=== PATIENT | male | born 1940 | race Caucasian/White ===

== ENCOUNTER 2019-05-03 15:14 | Observation (INO) | payer MEDICARE, BC ==
[2019-05-03] MEDS ORDERED: Ondansetron 4 MG/2 ML SDV IVPUSH ONE (16:45)
[2019-05-03] MEDS ORDERED: Sodium Chloride 0.9% 10 ML Syringe FLUSH PRN (16:45)
[2019-05-03] MEDS ORDERED: HYDROmorphone 0.5 MG/0.5 ML Syringe IVPUSH ONE (16:46)
--- NOTE | 2019-05-03 16:51 | EDM.PDOC ---
<Bri Chavarria - Last Filed: 05/03/19 18:45> ED HPI GENERAL MEDICAL PROBLEM - General Chief Complaint: Abdominal Pain Stated Complaint: PAIN Time Seen by Provider: 05/03/19 16:47 Source of Information: Reports: Patient History Limitations: Reports: No Limitations - History of Present Illness INITIAL COMMENTS - FREE TEXT/NARRATIVE: pt has had upper abdomanal pain starting this am and it has gotten progressively worse. S. He has not vomited. He had a bm yesterday. He does tend to be on the constipated side. Onset: Today, Sudden Duration: Hour(s): Location: Reports: Abdomen Quality: Reports: Sharp, Stabbing Severity: Moderate Associated Symptoms: Reports: Nausea/Vomiting, Weakness Upper Abdomen Pain Score (Numeric/FACES): 10 - Related Data Allergies Allergy/AdvReac Type Severity Reaction Status Date / Time codeine Allergy Swelling Verified 05/03/19 16:35 Home Meds: Home Meds Losartan [Cozaar] 50 mg PO DAILY 05/03/19 [History] Tamsulosin [Tamsulosin 24 Hr] 0.4 mg PO DAILY 05/03/19 [History] Past Medical History Cardiovascular History: Reports: Hypertension Genitourinary History: Reports: BPH Musculoskeletal History: Reports: Arthritis Oncologic (Cancer) History: Reports: Bladder - Past Surgical History GI Surgical History: Reports: Appendectomy Male Surgical History: Reports: Other (See Below) Other Male Surgeries/Procedures: tumors removed from bladder Musculoskeletal Surgical History: Reports: Hip Replacement Social & Family History - Tobacco Use Smoking Status *Q: Never Smoker - Caffeine Use Caffeine Use: Reports: Coffee - Alcohol Use Days Per Week of Alcohol Use: 7 Number of Drinks Per Day: 1 Total Drinks Per Week: 7 - Recreational Drug Use Recreational Drug Use: No ED ROS GENERAL - Review of Systems Review Of Systems: See Below HEENT: Reports: No Symptoms Respiratory: Reports: No Symptoms Cardiovascular: Reports: No Symptoms Endocrine: Reports: No Symptoms GI/Abdominal: Reports: Abdominal Pain, Decreased Appetite, Nausea, Other (pt has not eaten all day.) : Reports: No Symptoms Musculoskeletal: Reports: No Symptoms ED EXAM, GI/ABD - Physical Exam Exam: See Below Text/Narrative:: pt arrived having severe upper abdomanal pain. Earlier he had done some belching. He has not vomited. He had a small stool yesterday . He has not passed gas todsy. Exam Limited By: No Limitations General Appearance: Alert, Anxious, Moderate Distress Ears: Normal TMs Nose: Normal Inspection Throat/Mouth: Normal Inspection Head: Atraumatic, Normocephalic Neck: Normal Inspection Respiratory/Chest: No Respiratory Distress Cardiovascular: Regular Rate, Rhythm GI/Abdominal Exam: Tender, Other (pt has tenderness in the rt mid abdoman. He is mildly distended. ) (Male) Exam: Other ( He is not having problems voiding. ) Rectal (Males) Exam: Deferred Back Exam: Normal Inspection Extremities: Normal Inspection Neurological: Alert, Oriented, Normal Cognition Psychiatric: Normal Affect Course - Vital Signs Last Recorded V/S: Last Vital Signs Temp 36.1 C 05/03/19 16:49 Pulse 84 05/03/19 16:49 Resp 22 H 05/03/19 16:49 BP 204/99 H 05/03/19 16:49 Pulse Ox 95 05/03/19 16:49 - Orders/Labs/Meds Orders: Active Orders 24 hr Category Date Time Status CXR [Chest 2V] [CR] Stat Exams 05/03/19 20:17 Ordered UA W/MICROSCOPIC [URIN] Stat Lab 05/03/19 20:16 Ordered UA W/MICROSCOPIC [URIN] Urgent Lab 05/03/19 16:40 Ordered Sodium Chloride 0.9% [Saline Flush] Med 05/03/19 16:45 Active 10 ml FLUSH ASDIRECTED PRN Saline Lock Insert [OM.PC] Routine Oth 05/03/19 16:45 Ordered Medication Orders Sodium Chloride (Saline Flush) 10 ml FLUSH ASDIRECTED PRN PRN Reason: Keep Vein Open Last Admin: 05/03/19 16:55 Dose: 10 ml Labs: Laboratory Tests 05/03/19 05/03/19 05/03/19 Range/Units 16:53 16:53 17:40 WBC 10.5 (4.5-11.0) K/uL RBC 4.58 (4.30-5.90) M/uL Hgb 14.8 (12.0-15.0) g/dL Hct 43.1 (40.0-54.0) % MCV 94 (80-98) fL MCH 32 H (27-31) pg MCHC 34 (32-36) % Plt Count 297 (150-400) K/uL Neut % (Auto) 82 H (36-66) % Lymph % (Auto) 11 L (24-44) % [place] % (Auto) 7 H (2-6) % Eos % (Auto) 0 L (2-4) % Baso % (Auto) 0 (0-1) % Sodium 138 L (140-148) mmol/L Potassium 3.8 (3.6-5.2) mmol/L Chloride 98 L (100-108) mmol/L Carbon Dioxide 27 (21-32) mmol/L Anion Gap 16.8 H (5.0-14.0) mmol/L BUN 18 (7-18) mg/dL Creatinine 1.2 (0.8-1.3) mg/dL Est Cr Clr Drug Dosing 48.29 mL/min Estimated GFR (MDRD) 58 L (>60) Glucose 123 H (74-106) mg/dL Lactic Acid (0.4-2.0) mmol/L Calcium 9.4 (8.5-10.1) mg/dL Total Bilirubin 0.7 (0.2-1.0) mg/dL AST 16 (15-37) U/L ALT 18 (12-78) U/L Alkaline Phosphatase 94 (46-116) U/L C-Reactive Protein 0.77 H (0.0-0.3) mg/dL Total Protein 7.6 (6.4-8.2) g/dL Albumin 3.7 (3.4-5.0) g/dL Globulin 3.9 H (2.3-3.5) g/dL Albumin/Globulin Ratio 1.0 L (1.2-2.2) 05/03/19 Range/Units 17:40 WBC (4.5-11.0) K/uL RBC (4.30-5.90) M/uL Hgb (12.0-15.0) g/dL Hct (40.0-54.0) % MCV (80-98) fL MCH (27-31) pg MCHC (32-36) % Plt Count (150-400) K/uL Neut % (Auto) (36-66) % Lymph % (Auto) (24-44) % [place] % (Auto) (2-6) % Eos % (Auto) (2-4) % Baso % (Auto) (0-1) % Sodium (140-148) mmol/L Potassium (3.6-5.2) mmol/L Chloride (100-108) mmol/L Carbon Dioxide (21-32) mmol/L Anion Gap (5.0-14.0) mmol/L BUN (7-18) mg/dL Creatinine (0.8-1.3) mg/dL Est Cr Clr Drug Dosing mL/min Estimated GFR (MDRD) (>60) Glucose (74-106) mg/dL Lactic Acid 1.4 (0.4-2.0) mmol/L Calcium (8.5-10.1) mg/dL Total Bilirubin (0.2-1.0) mg/dL AST (15-37) U/L ALT (12-78) U/L Alkaline Phosphatase (46-116) U/L C-Reactive Protein (0.0-0.3) mg/dL Total Protein (6.4-8.2) g/dL Albumin (3.4-5.0) g/dL Globulin (2.3-3.5) g/dL Albumin/Globulin Ratio (1.2-2.2) Meds: Medications Generic Name Dose Route Start Last Admin Trade Name Freq PRN Reason Stop Dose Admin Sodium Chloride 10 ml 05/03/19 16:45 05/03/19 16:55 Saline Flush FLUSH 10 ml ASDIRECTED PRN Administration Keep Vein Open Discontinued Medications Generic Name Dose Route Start Last Admin Trade Name Freq PRN Reason Stop Dose Admin Hydromorphone HCl 0.5 mg 05/03/19 16:46 05/03/19 16:56 Dilaudid IVPUSH 05/03/19 16:47 0.5 mg ONETIME ONE Administration Sodium Chloride 71 mls @ 3.5 mls/sec 05/03/19 17:58 05/03/19 19:48 Normal Saline IV 05/03/19 17:59 3 mls/sec ONETIME ONE Administration Iopamidol 150 ml 05/03/19 17:58 05/03/19 19:48 Isovue-300 (61%) IV 05/03/19 17:59 150 ml ONETIME ONE Administration Ondansetron HCl 4 mg 05/03/19 16:45 05/03/19 16:53 Zofran IVPUSH 05/03/19 16:46 4 mg ONETIME ONE Administration Sodium Chloride 10 ml 05/03/19 17:58 05/03/19 19:48 Saline Flush FLUSH 05/03/19 17:59 10 ml ONETIME ONE Administration - Re-Assessments/Exams Free Text/Narrative Re-Assessment/Exam: 05/03/19 18:48 pt had normal labs. He was still rating his pain at a 10. A cat scan of the abdoman was obtained. Departure - Departure Disposition: Admitted As Inpatient 65 Clinical Impression: Ileus, unspecified, Abdominal pain - Discharge Information Referrals: PCP,None [Primary Care Provider] - Forms: ED Department Discharge - My Orders Last 24 Hours: My Active Orders 05/03/19 20:16 UA W/MICROSCOPIC [URIN] Stat 05/03/19 20:17 CXR [Chest 2V] [CR] Stat - Assessment/Plan Last 24 Hours: My Active Orders 05/03/19 20:16 UA W/MICROSCOPIC [URIN] Stat 05/03/19 20:17 CXR [Chest 2V] [CR] Stat <Monserrat Watson - Last Filed: 05/03/19 20:25> Course - Radiology Interpretation Free Text/Narrative:: CT Abd/Pelvis completed with IV contrast: moderate to severe fluid and air filled distention of the colon. Abnormal amount of air is also present throughout the small bowel. No focal infiltration or mass. - Re-Assessments/Exams Free Text/Narrative Re-Assessment/Exam: Discussed CT result results with patient noting significant ileus with large bowel distension. 05/03/19 20:24 Departure - Departure Time of Disposition: 20:22 - My Orders Last 24 Hours: My Active Orders 05/03/19 20:16 UA W/MICROSCOPIC [URIN] Stat 05/03/19 20:17 CXR [Chest 2V] [CR] Stat - Assessment/Plan Last 24 Hours: My Active Orders 05/03/19 20:16 UA W/MICROSCOPIC [URIN] Stat 05/03/19 20:17 CXR [Chest 2V] [CR] Stat
[2019-05-03] MEDS ORDERED: Iopamidol 500 ML BOTTLE IV ONE (17:58)
[2019-05-03] MEDS ORDERED: Sodium Chloride 0.9% 71 ML IV ONE (17:58)
[2019-05-03] MEDS ORDERED: Sodium Chloride 0.9% 10 ML Syringe FLUSH ONE (17:58)
--- NOTE | 2019-05-03 19:15 | CRLCT ---
INDICATION: Upper abdomen pain. History of bladder cancer. TECHNIQUE: CT abdomen and pelvis acquired with 150 cc Isovue-300 IV contrast. COMPARISON: None. FINDINGS: Lower chest: Unremarkable. Liver: Benign cavernous hemangioma is in the inferior right lobe. Otherwise unremarkable liver. Gallbladder and bile ducts: Single small gallbladder stone is present. No inflammation and no biliary dilatation. Pancreas: Unremarkable. No mass or inflammation. Spleen: Unremarkable. Normal in size. No masses. Adrenal glands: Unremarkable. No nodules. Kidneys: Unremarkable. No masses, stones, or hydronephrosis. GI tract: There is moderate to severe fluid and air-filled distention of the colon. Abnormal amount of air is also present throughout the small bowel. No focal inflammation or mass. Appendix is not visualized. Vasculature: Aortic atherosclerosis without aneurysm. Mesenteric arteries are patent. Lymph nodes: No lymphadenopathy. Omentum/Peritoneum/Abdominal Wall: Unremarkable. No sign of mass or infiltration. No free air or significant free fluid. Pelvis: Unremarkable. Bones: A 6 x 3 cm fluid collection with partial rim enhancement and/or calcifications is lateral to the left hip joint. There is severe left hip joint osteoarthritis. Right hip arthroplasty is present. Spondylitic changes are present at multiple levels of the lumbar spine. IMPRESSION: 1. Abnormal amount of air distention in the colon and to a lesser extent small bowel. The bowel pattern does not appear obstructive. Findings suggest a nonspecific ileus. 2. Minimal cholelithiasis. 3. 6 x 3 cm fluid collection lateral to the left hip joint with partial rim enhancement and/or calcification. Dictated by Octavio Winter MD @ 05/03/2019 7:12:59 PM Please note that all CT scans at this facility use dose modulation, iterative reconstruction, and/or weight-based dosing when appropriate to reduce radiation dose to as low as reasonably achievable. Dictated by: Octavio Winter MD @ 05/03/2019 19:13:05 (Electronically Signed)
--- NOTE | 2019-05-03 21:53 | PCM.HP.2 ---
H&P History of Present Illness - General Date of Service: 05/03/19 Admit Problem/Dx: Admission Diagnosis/Problem Admission Diagnosis/Problem Ileus Source of Information: Patient, Family, Provider History Limitations: Reports: No Limitations - History of Present Illness Initial Comments - Free Text/Narative: CC: My stomach's been hurting across here (rubs lower abd) HPI: Jovon presented to the emergency room with abdominal pain that started this morning. He describes initially mild crampy pain throughout the lower abdomen that progressed throughout the day to be severe in nature. Pain has continued to be in the lower half of his abdomen with some radiation to the upper half. Pain comes and goes in waves. No obvious trigger to make it worse. He hasn't found anything that has made it feel better other than the pain medication in the emergency room. He did try some medication to help him belch which did help slightly. He has some nausea but has not had any vomiting. He had a fairly normal bowel movement yesterday. He has not noticed changes in his bowel movements such as difficulty passing them or thin stool. No blood in the stool. His had diarrhea a week ago but otherwise no sick contacts. He has recently started using CBD oil for his hip pain. No fevers or chills. No change in bladder habits. Workup in the emergency room revealed fairly normal labs. CT scan of the abdomen and pelvis showed a colon that was dilated and full of fluid and air. Also air-filled loops of small bowel. This was thought to be most consistent with ileus. He will be admitted for observation and symptom management. Upper Abdomen Pain Score (Numeric/FACES): 10 - Related Data Allergies/Adverse Reactions: Allergies Allergy/AdvReac Type Severity Reaction Status Date / Time codeine Allergy Swelling Verified 05/03/19 16:35 Home Medications: Home Meds Losartan [Cozaar] 50 mg PO DAILY 05/03/19 [History] Tamsulosin [Tamsulosin 24 Hr] 0.4 mg PO DAILY 05/03/19 [History] Past Medical History Cardiovascular History: Reports: Hypertension Genitourinary History: Reports: BPH Musculoskeletal History: Reports: Arthritis Oncologic (Cancer) History: Reports: Bladder - Past Surgical History GI Surgical History: Reports: Appendectomy Male Surgical History: Reports: Other (See Below) Other Male Surgeries/Procedures: tumors removed from bladder Musculoskeletal Surgical History: Reports: Hip Replacement Social & Family History - Family History Oncologic: Reports: Colon (brother at 55) - Tobacco Use Smoking Status *Q: Never Smoker - Caffeine Use Caffeine Use: Reports: Coffee - Alcohol Use Days Per Week of Alcohol Use: 7 Number of Drinks Per Day: 1 Total Drinks Per Week: 7 - Recreational Drug Use Recreational Drug Use: No H&P Review of Systems - Review of Systems: Review Of Systems: See Below Free Text/Narrative: A complete 12 point review of systems was obtained. Pertinent positives and negatives are noted in the history of present illness. All other systems were reviewed and were negative except as noted. Exam - Exam Exam: See Below - Vital Signs Vital Signs: Last Vital Signs Temp 36.1 C 05/03/19 16:49 Pulse 84 05/03/19 16:49 Resp 22 H 05/03/19 16:49 BP 204/99 H 05/03/19 16:49 Pulse Ox 95 05/03/19 16:49 Weight: 87.8 kg - Exam Quality Assessment: No: Supplemental Oxygen General: Alert, Oriented, Cooperative. No: Mild Distress HEENT: Conjunctiva Clear, Mucosa Moist & [place]. No: Scleral Icterus Neck: Supple, Trachea Midline, Lymphadenopathy Lungs: Clear to Auscultation, Normal Respiratory Effort Cardiovascular: Regular Rate, Irregular Rhythm, Systolic Murmur GI/Abdominal Exam: Normal Bowel Sounds, Soft, No Distention, Tender (mild generalized ) Extremities: No Pedal Edema. No: Increased Warmth Peripheral Pulses: 2+: Dorsalis Pedis (L), Dorsalis Pedis (R) Skin: Warm, Dry Neuro Extensive - Mental Status: Alert, Oriented x3, Nl Response to Commands Neuro Extensive - Motor, Sensory, Reflexes: No: Dysarthria, Abnormal Motor, Tremor Psychiatric: Alert, Normal Affect - Patient Data Lab Results Last 24 hrs: Laboratory Results - last 24 hr 05/03/19 05/03/19 05/03/19 Range/Units 16:53 16:53 17:40 WBC 10.5 (4.5-11.0) K/uL RBC 4.58 (4.30-5.90) M/uL Hgb 14.8 (12.0-15.0) g/dL Hct 43.1 (40.0-54.0) % MCV 94 (80-98) fL MCH 32 H (27-31) pg MCHC 34 (32-36) % Plt Count 297 (150-400) K/uL Neut % (Auto) 82 H (36-66) % Lymph % (Auto) 11 L (24-44) % [place] % (Auto) 7 H (2-6) % Eos % (Auto) 0 L (2-4) % Baso % (Auto) 0 (0-1) % Sodium 138 L (140-148) mmol/L Potassium 3.8 (3.6-5.2) mmol/L Chloride 98 L (100-108) mmol/L Carbon Dioxide 27 (21-32) mmol/L Anion Gap 16.8 H (5.0-14.0) mmol/L BUN 18 (7-18) mg/dL Creatinine 1.2 (0.8-1.3) mg/dL Est Cr Clr Drug Dosing 48.29 mL/min Estimated GFR (MDRD) 58 L (>60) Glucose 123 H (74-106) mg/dL Lactic Acid (0.4-2.0) mmol/L Calcium 9.4 (8.5-10.1) mg/dL Total Bilirubin 0.7 (0.2-1.0) mg/dL AST 16 (15-37) U/L ALT 18 (12-78) U/L Alkaline Phosphatase 94 (46-116) U/L C-Reactive Protein 0.77 H (0.0-0.3) mg/dL Total Protein 7.6 (6.4-8.2) g/dL Albumin 3.7 (3.4-5.0) g/dL Globulin 3.9 H (2.3-3.5) g/dL Albumin/Globulin Ratio 1.0 L (1.2-2.2) 05/03/19 Range/Units 17:40 WBC (4.5-11.0) K/uL RBC (4.30-5.90) M/uL Hgb (12.0-15.0) g/dL Hct (40.0-54.0) % MCV (80-98) fL MCH (27-31) pg MCHC (32-36) % Plt Count (150-400) K/uL Neut % (Auto) (36-66) % Lymph % (Auto) (24-44) % [place] % (Auto) (2-6) % Eos % (Auto) (2-4) % Baso % (Auto) (0-1) % Sodium (140-148) mmol/L Potassium (3.6-5.2) mmol/L Chloride (100-108) mmol/L Carbon Dioxide (21-32) mmol/L Anion Gap (5.0-14.0) mmol/L BUN (7-18) mg/dL Creatinine (0.8-1.3) mg/dL Est Cr Clr Drug Dosing mL/min Estimated GFR (MDRD) (>60) Glucose (74-106) mg/dL Lactic Acid 1.4 (0.4-2.0) mmol/L Calcium (8.5-10.1) mg/dL Total Bilirubin (0.2-1.0) mg/dL AST (15-37) U/L ALT (12-78) U/L Alkaline Phosphatase (46-116) U/L C-Reactive Protein (0.0-0.3) mg/dL Total Protein (6.4-8.2) g/dL Albumin (3.4-5.0) g/dL Globulin (2.3-3.5) g/dL Albumin/Globulin Ratio (1.2-2.2) Result Diagrams: 05/03/19 16:53 05/03/19 16:53 Imaging Impressions Last 24 hrs: CT abd/pelvis - images personally reviewed - colon fluid and air filled and dilated as well as air filled loops of the small bowel. No mass or lymphadenopathy. Kidneys appear normal. Bowel changes most consistent with ileus. *Q Meaningful Use (ADM) - VTE Risk Assess *Q Each Risk Factor Represents 1 Point: Obesity ( BMI > 25 kg/m2) Total Score 1 Point Risk Factors: 1 Each Risk Factor Represents 2 Points: None Total Score 2 Point Risk Factors: 0 Each Risk Factor Represents 3 Points: Age 75 Years or Greater Total Score 3 Point Risk Factors: 3 Each Risk Factor Represents 5 Points: None Total Score 5 Point Risk Factors: 0 Venous Thromboembolism Risk Factor Score *Q: 4 - Problem List (1) Ileus, unspecified SNOMED Code(s): 51039608 ICD Code: K56.7 - ILEUS, UNSPECIFIED Status: Acute Current Visit: Yes (2) Abdominal pain SNOMED Code(s): 86124318 ICD Code: R10.9 - UNSPECIFIED ABDOMINAL PAIN Status: Acute Current Visit : Yes Qualifiers: Abdominal location: generalized Qualified Code(s): R10.84 - Generalized abdominal pain Problem List Initiated/Reviewed/Updated: Yes Orders Last 24hrs: Active Orders 24 hr Category Date Time Status Patient Status Manage Transfer [TRANSFER] Routine ADT 05/03/19 21:45 Ordered UA W/MICROSCOPIC [URIN] Stat Lab 05/03/19 20:16 Ordered Sodium Chloride 0.9% [Saline Flush] Med 05/03/19 16:45 Active 10 ml FLUSH ASDIRECTED PRN Saline Lock Insert [OM.PC] Routine Oth 05/03/19 16:45 Ordered Resuscitation Status Routine Resus Stat 05/03/19 21:46 Ordered Medication Orders Sodium Chloride (Saline Flush) 10 ml FLUSH ASDIRECTED PRN PRN Reason: Keep Vein Open Last Admin: 05/03/19 16:55 Dose: 10 ml Assessment/Plan Comment:: ASSESSMENT AND PLAN - Ileus - exact cause is not entirely clear. Virus could be considered since his had diarrhea somewhat recently. No fevers. No evidence for obstruction. No red flag symptoms. -Gentle hydration -Symptomatically management -Flat and upright in the morning Osteoarthritis of the left hip - fluid filled collection with partially calcified wall noted near the left hip. -Outpatient follow-up with his orthopedist Maintenance issues - - DVT prophylaxis - mechanical - GI prophylaxis - not indicated - Nutrition - full liquids - Solorio catheter - not indicated CODE STATUS - full code Admission justification - patient will be referred observation status for hydration, symptom management and repeat imaging in the morning Disposition - I would anticipate discharge home tomorrow Primary care physician - no local primary care Gab Davenport M.D. - Mortality Measure Prognosis:: Good
[2019-05-03] MEDS ORDERED: HYDROmorphone 0.5 MG/0.5 ML Syringe IVPUSH PRN (22:09)
[2019-05-03] MEDS ORDERED: Ondansetron 4 MG Tab.DIS PO PRN (22:09)
[2019-05-03] MEDS ORDERED: Acetaminophen 325 MG Tab PO PRN (22:09)
[2019-05-03] MEDS ORDERED: Ondansetron 4 MG/2 ML SDV IV PRN (22:09)
[2019-05-03] MEDS ORDERED: LORazepam 2 MG/ML SDV IVPUSH PRN (22:09)
[2019-05-03] MEDS: Sodium Chloride 0.9% 1,000 ML IV SCH (22:44)
--- NOTE | 2019-05-04 05:33 | CRLCR ---
Indication: Ileus follow-up Technique: Abdomen 2 view Comparison: Abdomen and pelvis CT 05/03/2019 Findings/Impression: Air is present within large and small intestine with some improvement in bowel caliber compared to the CT scan of 1 day prior. Contrast is noted within the bladder and the patient is status post right total hip replacement. Dictated by Sg Marinelli MD @ May 04 2019 5:29AM Signed by Dr. Sg Marinelli @ May 04 2019 5:31AM
[2019-05-04] MEDS: Sodium Chloride 0.9% 1,000 ML IV SCH (08:12)
[2019-05-04] MEDS ORDERED: Tamsulosin 0.4 MG Cap.ER PO SCH (09:00)
[2019-05-04] MEDS ORDERED: Losartan 50 MG Tab PO SCH (09:00)
--- NOTE | 2019-05-04 11:27 | PCM.DCSUM1 ---
Discharge Summary - Hospital Course Brief History: 78-year-old male with history of hypertension and BPH who presented with abdominal pain and distention. He was admitted for observation and management of an ileus. Diagnosis: Stroke: No - Discharge Data Discharge Date: 05/04/19 Discharge Disposition: Home, Self-Care 01 Condition: Good - Discharge Diagnosis/Problem(s) (1) Ileus, unspecified SNOMED Code(s): 99386917 ICD Code: K56.7 - ILEUS, UNSPECIFIED Status: Acute Current Visit: Yes (2) Abdominal pain SNOMED Code(s): 25554740 ICD Code: R10.9 - UNSPECIFIED ABDOMINAL PAIN Status: Acute Current Visit : Yes Qualifiers: Abdominal location: generalized Qualified Code(s): R10.84 - Generalized abdominal pain - Patient Summary/Data Hospital Course: Jovon presented to the emergency room with abdominal pain and distention. Laboratory studies were fairly unremarkable. Urinalysis did not suggest infection. CT scan of the abdomen and pelvis showed his colon was full of fluid and air and he also had some air-filled loops in the small intestine. This was felt to be most consistent with an ileus though there was no obvious cause for the ileus. Patient had passed a small amount of gas in the emergency room and was starting to feel better already. He was admitted for hydration and observation. Overnight there were no difficulties with pain. He has not had any nausea. He is tolerating his full liquid diet well. He has continued to pass gas but has not had a bowel movement. Repeat x-ray the morning after admission shows significant improvement in the dilated loops of small bowel as well as the dilated colon. He feels well and I believe he is safe for discharge home. I' m not quite sure why he had the ileus but potentially could be a viral infection since his was sick several days ago. He is tolerating his diet, does not have fevers and feels well so I believe he is safe for outpatient management. Also of note, the CT scan of the abdomen and pelvis didn't identify a fluid collection lateral to his left hip. This was approximately 3 x 6 cm and had an apparent wall around the collection with partial calcification. Patient did not have significant pain or findings at the site. He will be following up with his primary care and orthopedic folks once he gets home. - Patient Instructions Diet: Regular Diet as Tolerated Activity: As Tolerated Driving: January Drive Today Showering/Bathing: May Shower Notify Provider of: Fever, Increased Pain, Nausea and/or Vomiting - Discharge Plan *PRESCRIPTION DRUG MONITORING PROGRAM REVIEWED*: Not Applicable *COPY OF PRESCRIPTION DRUG MONITORING REPORT IN PATIENT [place]: Not Applicable Home Medications: Home Meds Losartan [Cozaar] 50 mg PO DAILY 05/03/19 [History] Tamsulosin [Flomax] 0.4 mg PO DAILY 05/03/19 [History] Oxygen Therapy Mode: Room Air Patient Handouts: Ileus Referrals: PCP,None [Primary Care Provider] - (f/u as needed if symptoms return ) - Discharge Summary/Plan Comment DC Time >30 min.: No - Patient Data Vitals - Most Recent: Last Vital Signs Temp 36.1 C 05/04/19 07:34 Pulse 57 L 05/04/19 07:34 Resp 16 05/04/19 07:34 BP 129/65 05/04/19 07:34 Pulse Ox 96 05/04/19 07:34 Weight - Most Recent: 86.296 kg I&O - Last 24 hours: Intake & Output 05/03/19 05/04/19 05/04/19 22:59 06:59 14:59 Intake Total 712 Output Total 400 400 Balance 312 -400 Lab Results - Last 24 hrs: Laboratory Results - last 24 hr 05/03/19 05/03/19 05/03/19 Range/Units 16:53 16:53 17:40 WBC 10.5 (4.5-11.0) K/uL RBC 4.58 (4.30-5.90) M/uL Hgb 14.8 (12.0-15.0) g/dL Hct 43.1 (40.0-54.0) % MCV 94 (80-98) fL MCH 32 H (27-31) pg MCHC 34 (32-36) % Plt Count 297 (150-400) K/uL Neut % (Auto) 82 H (36-66) % Lymph % (Auto) 11 L (24-44) % [place] % (Auto) 7 H (2-6) % Eos % (Auto) 0 L (2-4) % Baso % (Auto) 0 (0-1) % Sodium 138 L (140-148) mmol/L Potassium 3.8 (3.6-5.2) mmol/L Chloride 98 L (100-108) mmol/L Carbon Dioxide 27 (21-32) mmol/L Anion Gap 16.8 H (5.0-14.0) mmol/L BUN 18 (7-18) mg/dL Creatinine 1.2 (0.8-1.3) mg/dL Est Cr Clr Drug Dosing 48.29 mL/min Estimated GFR (MDRD) 58 L (>60) Glucose 123 H (74-106) mg/dL Lactic Acid (0.4-2.0) mmol/L Calcium 9.4 (8.5-10.1) mg/dL Total Bilirubin 0.7 (0.2-1.0) mg/dL AST 16 (15-37) U/L ALT 18 (12-78) U/L Alkaline Phosphatase 94 (46-116) U/L C-Reactive Protein 0.77 H (0.0-0.3) mg/dL Total Protein 7.6 (6.4-8.2) g/dL Albumin 3.7 (3.4-5.0) g/dL Globulin 3.9 H (2.3-3.5) g/dL Albumin/Globulin Ratio 1.0 L (1.2-2.2) Urine Color (YELLOW) Urine Appearance (CLEAR) Urine pH (5.0-8.0) Ur Specific [place] (1.008-1.030) Urine Protein (NEGATIVE) mg/dL Urine Glucose (UA) (NEGATIVE) mg/dL Urine Ketones (NEGATIVE) mg/dL Urine Occult Blood (NEGATIVE) Urine Nitrite (NEGATIVE) Urine Bilirubin (NEGATIVE) Urine Urobilinogen (0.2-1.0) EU/dL Ur Leukocyte Esterase (NEGATIVE) Urine RBC (0-5) Urine WBC (0-5) Ur Epithelial Cells Amorphous Sediment Urine Bacteria Urine Mucus 05/03/19 05/04/19 05/04/19 Range/Units 17:40 04:40 04:40 WBC 8.6 (4.5-11.0) K/uL RBC 3.92 L (4.30-5.90) M/uL Hgb 12.7 D (12.0-15.0) g/dL Hct 37.7 L (40.0-54.0) % MCV 96 (80-98) fL MCH 32 H (27-31) pg MCHC 34 (32-36) % Plt Count 270 (150-400) K/uL Neut % (Auto) (36-66) % Lymph % (Auto) (24-44) % [place] % (Auto) (2-6) % Eos % (Auto) (2-4) % Baso % (Auto) (0-1) % Sodium 138 L (140-148) mmol/L Potassium 3.4 L (3.6-5.2) mmol/L Chloride 101 (100-108) mmol/L Carbon Dioxide 31 (21-32) mmol/L Anion Gap 9.4 (5.0-14.0) mmol/L BUN 17 (7-18) mg/dL Creatinine 1.1 (0.8-1.3) mg/dL Est Cr Clr Drug Dosing 52.68 mL/min Estimated GFR (MDRD) > 60 (>60) Glucose 96 (74-106) mg/dL Lactic Acid 1.4 (0.4-2.0) mmol/L Calcium 8.5 (8.5-10.1) mg/dL Total Bilirubin (0.2-1.0) mg/dL AST (15-37) U/L ALT (12-78) U/L Alkaline Phosphatase (46-116) U/L C-Reactive Protein (0.0-0.3) mg/dL Total Protein (6.4-8.2) g/dL Albumin (3.4-5.0) g/dL Globulin (2.3-3.5) g/dL Albumin/Globulin Ratio (1.2-2.2) Urine Color (YELLOW) Urine Appearance (CLEAR) Urine pH (5.0-8.0) Ur Specific [place] (1.008-1.030) Urine Protein (NEGATIVE) mg/dL Urine Glucose (UA) (NEGATIVE) mg/dL Urine Ketones (NEGATIVE) mg/dL Urine Occult Blood (NEGATIVE) Urine Nitrite (NEGATIVE) Urine Bilirubin (NEGATIVE) Urine Urobilinogen (0.2-1.0) EU/dL Ur Leukocyte Esterase (NEGATIVE) Urine RBC (0-5) Urine WBC (0-5) Ur Epithelial Cells Amorphous Sediment Urine Bacteria Urine Mucus 05/04/19 Range/Units 04:56 WBC (4.5-11.0) K/uL RBC (4.30-5.90) M/uL Hgb (12.0-15.0) g/dL Hct (40.0-54.0) % MCV (80-98) fL MCH (27-31) pg MCHC (32-36) % Plt Count (150-400) K/uL Neut % (Auto) (36-66) % Lymph % (Auto) (24-44) % [place] % (Auto) (2-6) % Eos % (Auto) (2-4) % Baso % (Auto) (0-1) % Sodium (140-148) mmol/L Potassium (3.6-5.2) mmol/L Chloride (100-108) mmol/L Carbon Dioxide (21-32) mmol/L Anion Gap (5.0-14.0) mmol/L BUN (7-18) mg/dL Creatinine (0.8-1.3) mg/dL Est Cr Clr Drug Dosing mL/min Estimated GFR (MDRD) (>60) Glucose (74-106) mg/dL Lactic Acid (0.4-2.0) mmol/L Calcium (8.5-10.1) mg/dL Total Bilirubin (0.2-1.0) mg/dL AST (15-37) U/L ALT (12-78) U/L Alkaline Phosphatase (46-116) U/L C-Reactive Protein (0.0-0.3) mg/dL Total Protein (6.4-8.2) g/dL Albumin (3.4-5.0) g/dL Globulin (2.3-3.5) g/dL Albumin/Globulin Ratio (1.2-2.2) Urine Color Yellow (YELLOW) Urine Appearance Clear (CLEAR) Urine pH 8.0 (5.0-8.0) Ur Specific [place] 1.015 (1.008-1.030) Urine Protein 100 H (NEGATIVE) mg/dL Urine Glucose (UA) Normal (NEGATIVE) mg/dL Urine Ketones 15 H (NEGATIVE) mg/dL Urine Occult Blood Negative (NEGATIVE) Urine Nitrite Negative (NEGATIVE) Urine Bilirubin Negative (NEGATIVE) Urine Urobilinogen Normal (0.2-1.0) EU/dL Ur Leukocyte Esterase Negative (NEGATIVE) Urine RBC 0-5 (0-5) Urine WBC 0-5 (0-5) Ur Epithelial Cells Rare Amorphous Sediment Not seen Urine Bacteria Few Urine Mucus Not seen Med Orders - Current: Current Medications Acetaminophen (Tylenol) 650 mg PO Q4H PRN PRN Reason: Pain (Mild 1-3)/fever Hydromorphone HCl (Dilaudid) 0.5 mg IVPUSH Q2H PRN PRN Reason: Pain (severe 7-10) Sodium Chloride (Normal Saline) 1,000 mls @ 100 mls/hr IV ASDIRECTED [facility] Last Admin: 05/04/19 08:12 Dose: 100 mls/hr Lorazepam (Ativan) 0.5 mg IVPUSH Q4H PRN PRN Reason: Nausea/Vomiting Losartan Potassium (Cozaar) 50 mg PO DAILY [facility] Ondansetron HCl (Zofran Odt) 4 mg PO Q6H PRN PRN Reason: Nausea able to take PO Ondansetron HCl (Zofran) 4 mg IV Q6H PRN PRN Reason: Nausea/Vomiting Senna/Docusate Sodium (Senna Plus) 1 tab PO BID PRN PRN Reason: Constipation Sodium Chloride (Saline Flush) 10 ml FLUSH ASDIRECTED PRN PRN Reason: Keep Vein Open Last Admin: 05/03/19 16:55 Dose: 10 ml Tamsulosin HCl (Flomax) 0.4 mg PO DAILY [facility] Discontinued Medications Hydromorphone HCl (Dilaudid) 0.5 mg IVPUSH ONETIME ONE Stop: 05/03/19 16:47 Last Admin: 05/03/19 16:56 Dose: 0.5 mg Sodium Chloride (Normal Saline) 71 mls @ 3.5 mls/sec IV ONETIME ONE Stop: 05/03/19 17:59 Last Admin: 05/03/19 19:48 Dose: 3 mls/sec Iopamidol (Isovue-300 (61%)) 150 ml IV ONETIME ONE Stop: 05/03/19 17:59 Last Admin: 05/03/19 19:48 Dose: 150 ml Ondansetron HCl (Zofran) 4 mg IVPUSH ONETIME ONE Stop: 05/03/19 16:46 Last Admin: 05/03/19 16:53 Dose: 4 mg Sodium Chloride (Saline Flush) 10 ml FLUSH ONETIME ONE Stop: 05/03/19 17:59 Last Admin: 05/03/19 19:48 Dose: 10 ml - Exam Quality Assessment: Denies: Supplemental Oxygen General: Reports: Alert, Oriented, Cooperative, No Acute Distress Lungs: Reports: Normal Respiratory Effort GI/Abdominal Exam: Soft, Non-Tender, No Distention Extremities: No Pedal Edema Psy/Mental Status: Reports: Alert, Normal Affect
== END 2019-05-04 12:25 | disposition home or self-care (01) ==
LOC: JP.ED 15:14 → JP.MS 21:45
PROVIDERS: ADMIT Internal Medicine; ATTEND Internal Medicine
DX: K56.7 Ileus, unspecified (principal); I10 Essential (primary) hypertension; N40.0 Benign prostatic hyperplasia without lower urinary tract symptoms; M16.12 Unilateral primary osteoarthritis, left hip; Z79.899 Other long term (current) drug therapy; Z88.5 Allergy status to narcotic agent
CPT/HCPCS: 36415; 74019; 74177; 80048; 80053; 81001; 83605; 85025; 85027; 86140; 96361; 96374; 96375; 99285; G0378; J1170; J2405; J7030; Q9967